=== PATIENT | male | born 1965 | race African-American/Black ===

== ENCOUNTER 2019-02-10 13:25 | Emergency (ER) | payer MEDICAID ==
[~2019-02-10] VITALS: Ht 185.4 cm; Wt 120.0 kg
[2019-02-10] MEDS ORDERED: ACETAMINOPHEN 500MG TABLET PO ONE (15:00)
[2019-02-10 16:15] VITALS: BP 123/84
== END 2019-02-10 16:23 | disposition home or self-care (01) ==
LOC: ER 13:41
DX: S50.01XA Contusion of right elbow, initial encounter (principal); S40.011A Contusion of right shoulder, initial encounter; M54.5 Low back pain; R03.0 Elevated blood-pressure reading, without diagnosis of hypertension; Y93.89 Activity, other specified; W01.198A Fall on same level from slipping, tripping and stumbling with subsequent striking against other object, initial encounter; Y92.090 Kitchen in other non-institutional residence as the place of occurrence of the external cause; Z87.891 Personal history of nicotine dependence; F10.21 Alcohol dependence, in remission
CPT/HCPCS: 72100; 73030; 73080; 99283; A4565

== ENCOUNTER 2019-03-13 11:07 | Emergency (ER) | payer MEDICAID ==
[~2019-03-13] VITALS: Ht 185.4 cm; Wt 118.0 kg
[2019-03-13 11:18] VITALS: BP 115/79
[2019-03-13] MEDS ORDERED: AMLO10TA80 PO (11:22)
[2019-03-13] MEDS ORDERED: ALBUTEROL (0.083%) 2.5MG/3ML NEB HHN STA (11:49)
[2019-03-13] MEDS ORDERED: IPRATROPIUM BROMIDE (0.02%) 0.5MG/2.5ML NEB HHN STA (11:49)
== END 2019-03-13 12:47 | disposition home or self-care (01) ==
LOC: ER 12:13
DX: J40 Bronchitis, not specified as acute or chronic (principal); I10 Essential (primary) hypertension; Z98.890 Other specified postprocedural states
CPT/HCPCS: 71045; 94640; 99283; J7611